=== PATIENT | female | born 1970 | race Caucasian/White ===

== ENCOUNTER 2020-07-04 07:23 | Emergency (ER) | payer OTHER ==
[~2020-07-04] VITALS: Ht 165.1 cm; Wt 68.0 kg
[~2020-07-04 07:23] MED LIST: ACYCLOVIR PO; AMBIEN CR 6.26.25 MG PO; CALCIUM 600 +1 EA10 PO; CLONAZEPAM PO; COMPOUNDED CREAM; DOLOPHINE HCL10 MG PO; EQL CRANBERRY1 EACH PO; L-LYSINE500 M1 PO; LIDOCAINE 3%-HC7 GM; LYRICA 75 MG CA75 MG PO; METHADONE HCL 110 M1 PO; NORCO 5-325 TA1 EACH PO; NORCO 7.5-3251 EACH PO; PREVACID PO; REMERON15 M1 PO; ROXICODONE5 M1 PO; SAVELLA50 MG PO; SENNA PO; VITAMINC500 PO; VOLTAREN100 GM TP
[2020-07-04] MEDS ORDERED: PREVACID30 M2 PO (07:33)
[2020-07-04] MEDS ORDERED: FLEXERIL PO (08:30)
[2020-07-04] MEDS ORDERED: LIDODERM1 EACH TOP (08:31)
[2020-07-04 09:16] VITALS: BP 127/81
== END 2020-07-04 09:22 | disposition home or self-care (01) ==
LOC: ER 07:23
DX: G89.29 Other chronic pain (principal); M54.5 Low back pain; Z79.899 Other long term (current) drug therapy